=== PATIENT | male | born 1960 | race Hispanic/Latino ===

== ENCOUNTER 2016-08-03 09:36 | Emergency (ER) | payer OTHER ==
[2016-08-03] MEDS ORDERED: NORCO 7.5/325 PO ONE (10:36)
[2016-08-03] MEDS ORDERED: ZOFRAN ODT PO ONE (10:36)
[2016-08-03 10:37] LABS: Basophils % (Auto) 0.5 % (0.0-1.8); Eosinophils % (Auto) 1.6 % (0.0-4.3); Hematocrit 40.4 % (35.5-45.6); Hemoglobin 13.3 gm/dl (11.8-15.2); Mean Corpuscular HGB Conc 33 % (32-34); Mean Corpuscular Hemoglobin 31 pg (28-32); Mean Corpuscular Volume 93 fl (84-94); Platelet Count 201 K/mm3 (140-440); Red Blood Count 4.33 M/mm3 (3.65-5.03); Red Cell Distribution Width 13.3 % (13.2-15.2); White Blood Count 7.1 K/mm3 (4.5-11.0)
[2016-08-03] MEDS ORDERED: TESSALON PERLES PO ONE (10:37)
[2016-08-03 10:49] LABS: Creatine Kinase MB 2.9 ng/mL (0.0-4.0)
[2016-08-03 10:50] LABS: Anion Gap 18 mmol/L; BUN/Creatinine Ratio 21.42; Blood Urea Nitrogen 15 mg/dL (9-20); Calcium 8.9 mg/dL (8.4-10.2); Carbon Dioxide 21 mmol/L (22-30); Chloride 99.6 mmol/L (98-107); Creatine Kinase 91 units/L (55-170); Glucose 112 mg/dL (75-100); Sodium 135 mmol/L (137-145)
--- NOTE | 2016-08-03 11:11 | XRay Report ---
Single view chest: History: Chest pain. Findings: Borderline cardiomegaly. Trachea is midline. No consolidation, pneumothorax or pleural effusion. Impression: No definite acute cardiopulmonary findings.
--- NOTE | 2016-08-03 11:14 | Emergency Department Report ---
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 The patient reports chest pain since yesterday morning, 25 hours prior to my evaluation. He states that his chest pain has been constant since onset, right- sided in location, 8/10 in severity, stabbing in quality, and is exacerbated with coughing. He admits to experiencing a moderate to severe no productive cough also for the past one day. The patient denies fever, syncope, dyspnea, hemoptysis, forceful vomiting, unilateral leg swelling, recent immobilization, history of DVT or PE, hx cancer, cocaine use, amphetamine use, or other illicit stimulant drug use. ED Past Medical Hx - Past Medical History Previous Medical History?: No - Surgical History Past Surgical History?: No - Social History Smoking Status: Current Every Day Smoker Substance Use Type: None - Medications Home Medications: Home Medications Medication Instructions Recorded Confirmed Last Taken Type ALBUTEROL Inhaler [ProAir HFA 2 puff IH QID PRN #1 inhalation 08/03/16 Unknown Rx Inhaler] Benzonatate [Tessalon Perles] 100 mg PO Q8HR #14 capsule 08/03/16 Unknown Rx HYDROcodone/APAP 7.5-325 [[place] 1 each PO Q8HR PRN #10 tablet 08/03/16 Unknown Rx 7.5-325 mg TAB] Omeprazole Magnesium [PriLOSEC Otc] 20 mg PO QDAY #14 tablet. 08/03/16 Unknown Rx predniSONE [Deltasone] 20 mg PO QDAY #5 tab 08/03/16 Unknown Rx ED Review of Systems ROS: Stated complaint: RT CHEST PAIN Other details as noted in HPI Constitutional: denies: fever ENT: denies: throat or neck pain Respiratory: denies: cough, shortness of breath Cardiovascular: reports chest pain Endocrine: denies unexplained weight loss or gain Gastrointestinal: denies: abdominal pain, nausea Genitourinary: denies: dysuria Musculoskeletal: denies: leg swelling Skin: denies: rash Neurological: denies: headache Hematological/Lymphatic: denies: easy bleeding or easy bruising Psych: denies sadness or hopelessness Physical Exam - Physical Exam Vital Signs: Vital Signs 08/03/16 08/03/16 08/03/16 09:52 09:59 10:00 Temperature 98.3 F Pulse Rate 73 71 68 Respiratory 21 Rate Blood Pressure 127/83 146/85 O2 Sat by Pulse 99 Oximetry 08/03/16 08/03/16 08/03/16 10:08 10:15 10:49 Temperature Pulse Rate 66 Respiratory 21 14 14 Rate Blood Pressure 124/85 O2 Sat by Pulse 99 93 Oximetry Physical Exam: General: well-nourished, well-developed, no acute distress Head: Normocephalic, atraumatic Eyes: normal sclera ENT: Mucous membranes are pink and moist Neck: trachea midline, neck supple, No neck stiffness, no cervical adenopathy Respiratory: Breath sounds equal bilaterally, no wheezing, rales, or rhonchi Cardio: S1 and S2 present, no murmurs, rubs, gallops, capillary refill is brisk Abdomen: Normoactive bowel sounds, soft abdomen, no rigidity, no guarding or rebound tenderness Chest WALL/Back: No tenderness to palpation of the chest wall, no CVA tenderness with percussion Musc: No pitting edema Skin: No rash Neuro: no facial drooping, normal speech Psych: Normal affect ED Course Vital Signs 08/03/16 08/03/16 08/03/16 09:52 09:59 10:00 Temperature 98.3 F Pulse Rate 73 71 68 Respiratory 21 Rate Blood Pressure 127/83 146/85 O2 Sat by Pulse 99 Oximetry 08/03/16 08/03/16 08/03/16 10:08 10:15 10:49 Temperature Pulse Rate 66 Respiratory 21 14 14 Rate Blood Pressure 124/85 O2 Sat by Pulse 99 93 Oximetry ED Medical Decision Making - Lab Data Result diagrams: 08/03/16 10:15 08/03/16 10:15 - Medical Decision Making The patient was seen and examined by myself. The patient is placed on a pvc monitor and continuous pulse ox. On initial evaluation, the patient was found to be in no distress. EKG was negative for findings suggestive of acute cardiac infarct. Labs and imaging are obtained. The patient is given a tablet of [place] for his pain and Tessalon Perles for cough. Chest x-ray is negative for pneumothorax, focal consolidation, pulmonary vascular congestion, pleural effusion, or other obvious acute cardiopulmonary disease process. Lab results were non-concerning including levels of troponin, WBC, hemoglobin, hematocrit, electrolytes, renal function. The patient was reevaluated and reported that their symptoms were markedly improved. As the patient has a SHITAL risk score of 0, and a well's score less than 2, the patient is at low risk of ACS or pulmonary emboli etiology of their symptoms. The patient is stable for discharge with outpatient follow-up. The patient is given follow-up and return instructions. The patient expressed understanding and agreed with the plan. The patient is discharged in stable condition. Critical care attestation.: If time is entered above; I have spent that time in minutes in the direct care of this critically ill patient, excluding procedure time. ED Disposition Clinical Impression: Acute chest pain Disposition: DISCHARGED TO HOME OR SELFCARE Is pt being admited?: No Does the pt Need Aspirin: No Condition: Stable Instructions: Chest Pain (ED), Costochondritis (ED), Gastroesophageal Reflux Disease (ED) Prescriptions: ALBUTEROL Inhaler [ProAir HFA Inhaler] 2 puff IH QID PRN #1 inhalation PRN Reason: Shortness Of Breath Benzonatate [Tessalon Perles] 100 mg PO Q8HR #14 capsule HYDROcodone/APAP 7.5-325 [[place] 7.5-325 mg TAB] 1 each PO Q8HR PRN #10 tablet PRN Reason: Pain Omeprazole Magnesium [PriLOSEC Otc] 20 mg PO QDAY #14 tablet. predniSONE [Deltasone] 20 mg PO QDAY #5 tab Referrals: PRIMARY CARE, [Primary Care Provider] - 3-5 Days Time of Disposition: 11:09
[2016-08-03 12:18] VITALS: BP 131/82
== END 2016-08-03 12:14 | disposition home or self-care (01) ==
LOC: ED 09:36
DX: R07.89 Other chest pain (principal); F17.200 Nicotine dependence, unspecified, uncomplicated
CPT/HCPCS: 36415; 71010; 80048; 82550; 82553; 84484; 85025; 93005; 93010; Q0162

== ENCOUNTER 2020-09-13 10:10 | Emergency (ER) | payer SELFPAY ==
[2020-09-13 10:23] VITALS: BP 141/83
[2020-09-13] MEDS ORDERED: IBUPROFEN 800 MG TAB PO ONE (10:33)
--- NOTE | 2020-09-13 10:34 | Emergency Department Report ---
ED Lower Extremity HPI - General Chief Complaint: Extremity Injury, Lower Stated Complaint: LEFT ANKLE INJURY Time Seen by Provider: 09/13/20 10:20 Source: patient Mode of arrival: Ambulatory Limitations: No Limitations - History of Present Illness Initial Comments: 60-year-old male presents to the ER today with complaints of right ankle pain. Patient states that yesterday around 2 PM while walking down a hill at his home he slipped on some pine straw's and fell. Patient states that when he fell he twisted his right ankle and it ended up underneath him. Patient states that he felt a pop after falling. Patient reports pain mainly to the lateral aspect of his right ankle with associated swelling and bruising. He reports difficulty ambulating due to pain. He denies any prior injury to that ankle. He reports no other symptoms at this time. MD Complaint: ankle injury -: Sudden (yesterday around 2pm ) - Related Data Previous Rx's Medication Instructions Recorded Last Taken Type Albuterol Mdi (or & Nicu Only) 2 puff IH QID PRN #1 inhalation 08/03/16 Unknown Rx [ProAir HFA Inhaler] Benzonatate [Tessalon Perles] 100 mg PO Q8HR #14 capsule 08/03/16 Unknown Rx Omeprazole Magnesium [PriLOSEC Otc] 20 mg PO QDAY #14 tablet. 08/03/16 Unknown Rx predniSONE [Deltasone] 20 mg PO QDAY #5 tab 08/03/16 Unknown Rx HYDROcodone/APAP 7.5-325 [[place] 1 each PO Q8HR PRN #10 tablet 09/13/20 Unknown Rx 7.5-325 mg TAB] Ibuprofen [Motrin] 800 mg PO Q8HR PRN #30 tablet 09/13/20 Unknown Rx Allergies Allergy/AdvReac Type Severity Reaction Status Date / Time Penicillins Allergy Hives Verified 08/03/16 09:57 ED Review of Systems ROS: Stated complaint: LEFT ANKLE INJURY Other details as noted in HPI Comment: All other systems reviewed and negative Musculoskeletal: joint swelling, arthralgia Neurological: abnormal gait ED Past Medical Hx - Past Medical History Previous Medical History?: No - Surgical History Past Surgical History?: Yes Additional Surgical History: left wrist, left knee - Social History Smoking Status: Current Every Day Smoker Substance Use Type: None - Medications Home Medications: Home Medications Medication Instructions Recorded Confirmed Last Taken Type Albuterol Mdi (or & Nicu Only) 2 puff IH QID PRN #1 inhalation 08/03/16 Unknown Rx [ProAir HFA Inhaler] Benzonatate [Tessalon Perles] 100 mg PO Q8HR #14 capsule 08/03/16 Unknown Rx Omeprazole Magnesium [PriLOSEC Otc] 20 mg PO QDAY #14 tablet. 08/03/16 Unknown Rx predniSONE [Deltasone] 20 mg PO QDAY #5 tab 08/03/16 Unknown Rx HYDROcodone/APAP 7.5-325 [[place] 1 each PO Q8HR PRN #10 tablet 09/13/20 Unknown Rx 7.5-325 mg TAB] Ibuprofen [Motrin] 800 mg PO Q8HR PRN #30 tablet 09/13/20 Unknown Rx ED Physical Exam - General Limitations: No Limitations General appearance: alert, in no apparent distress - Respiratory Respiratory exam: Present: respiratory distress. Absent: normal lung sounds bilaterally - Cardiovascular Cardiovascular Exam: Present: regular rate, normal rhythm, normal heart sounds - Expanded Lower Extremity Exam Right Ankle exam: Present: tenderness (Severe tenderness to palpation to the lateral aspect of the right ankle), swelling (Mainly to the lateral aspect of the right ankle and mildly also to the lateral aspect of the foot), ecchymosis (Mild, mainly around the lateral aspect of the right foot.). Absent: full ROM (Range of motion of the ankle reduced due to pain), abrasion, crepidus, dislocation, erythema Neuro vascular tendon exam: Present: no vascular compromise - Neurological Exam Neurological exam: Present: alert, oriented X3, CN II-XII intact, abnormal gait (Limping gait secondary to pain to the right ankle), other (Dorsalis pedis pulse normal. Cap refill normal to the left foot. Sensation intact over the left foot and ankle.) - Psychiatric Psychiatric exam: Present: normal affect, normal mood - Skin Skin exam: Present: intact ED Course Vital Signs 09/13/20 09/13/20 10:23 11:16 Temperature 98.1 F Pulse Rate 74 Respiratory 20 20 Rate Blood Pressure 141/83 [Right] O2 Sat by Pulse 97 Oximetry ED Lower Extremity MDM - Radiology Data Radiology results: report reviewed Patient: MICHAEL VU MR#: [id number] : 1960 Acct:[id number] Age/Sex: 60 / M ADM Date: 09/13/20 Loc: ED Attending Dr: Ordering Physician: ANJEL ALFARO Date of Service: 09/13/20 Procedure(s): XR ankle 3+V LT Accession Number(s): [id number] cc: ANJEL ALFARO Fluoro Time In Minutes: XR foot 3+V LT, XR ankle 3+V LT INDICATION / CLINICAL INFORMATION: Slipped fell/twisted foot. COMPARISON: None available. FINDINGS: Left ankle: There is an acute minimally displaced oblique fracture involving the distal fibula at the syndesmosis. No additional acute fracture. Corticated densities at the distal tip of the medial malleolus are consistent with sequela of prior trauma. Ankle mortise is symmetric. Syndesmosis is intact. Soft tissue swelling is present. Left foot: No acute fracture or malalignment. Lisfranc interval is preserved. Scattered degenerative changes, greatest at the first MTP. No focal soft tissue abnormality. IMPRESSION: Acute distal left fibular fracture. Signer Name: Marly Ortiz MD Signed: 09/13/2020 11:07 AM Workstation Name: [email or web address] Transcribed By: JS Dictated By: MARLY ORTIZ MD Electronically Authenticated By: MARLY ORTIZ MD Signed Date/Time: 09/13/20 1107 DD/ 1105 TD/TT: - Medical Decision Making X-ray shows distal fibula fracture of the left ankle. No evidence of compartment syndrome. Patient placed in the short posterior OCL splint. Patient neurovascular intact post splint placement. Discussed x-ray results, splint care, and the need for follow-up with entry specialists with patient. Patient expressed understanding of instructions and agree with plan. Patient was stable at time of discharge. Critical care attestation.: If time is entered above; I have spent that time in minutes in the direct care of this critically ill patient, excluding procedure time. ED Disposition Clinical Impression: Fracture of distal fibula Disposition: - TO HOME OR SELFCARE Is pt being admited?: No Does the pt Need Aspirin: No Condition: Stable Instructions: Ankle Fracture Additional Instructions: Do not remove the splint or get it wet. Elevate your leg as often as possible. Use the crutches to help ambulate. Take the Motrin and the hydrocodone as prescribed. Follow-up with the entry specialists listed on your discharge instructions next week. Return to the ER if any symptoms changes or worsens in any way. Prescriptions: Ibuprofen [Motrin] 800 mg PO Q8HR PRN #30 tablet PRN Reason: PAIN HYDROcodone/APAP 7.5-325 [[place] 7.5-325 mg TAB] 1 each PO Q8HR PRN #10 tablet PRN Reason: Pain Referrals: KATIE MITCHELL MD [Staff Physician] - 3-5 Days Forms: Work/School Release Form(ED) Time of Disposition: 12:24
--- NOTE | 2020-09-13 11:12 | XRay Report ---
XR foot 3+V LT, XR ankle 3+V LT INDICATION / CLINICAL INFORMATION: Slipped fell/twisted foot. COMPARISON: None available. FINDINGS: Left ankle: There is an acute minimally displaced oblique fracture involving the distal fibula at the syndesmosis. No additional acute fracture. Corticated densities at the distal tip of the medial mall eolus are consistent with sequela of prior trauma. Ankle mortise is symmetric. Syndesmosis is intact. Soft tissue swelling is present. Left foot: No acute fracture or malalignment. Lisfranc interval is preserved. Scattered degenerative changes, greatest at the first MTP. No focal soft tissue abnormality. IMPRESSION: Acute distal left fibular fracture. Signer Name: Alban Ortiz MD Signed: 09/13/2020 11:07 AM Workstation Name: [id number]
== END 2020-09-13 12:50 | disposition home or self-care (01) ==
LOC: ED 10:10
DX: S82.492A Other fracture of shaft of left fibula, initial encounter for closed fracture (principal); F17.200 Nicotine dependence, unspecified, uncomplicated; Z79.899 Other long term (current) drug therapy; W17.89XA Other fall from one level to another, initial encounter; Y93.89 Activity, other specified; Y92.89 Other specified places as the place of occurrence of the external cause; Y99.8 Other external cause status
CPT/HCPCS: 99283

== ENCOUNTER 2021-07-28 11:11 | Emergency (ER) | payer SELFPAY ==
[2021-07-28 11:42] VITALS: BP 146/85
--- NOTE | 2021-07-28 11:55 | Emergency Department Report ---
ED ENT HPI - General Chief complaint: Earache Stated complaint: RGHT EAR PAIN Time Seen by Provider: 07/28/21 11:45 Source: patient Mode of arrival: Ambulatory Limitations: No Limitations - Related Data Previous Rx's Medication Instructions Recorded Last Taken Type Albuterol Mdi (or & Nicu Only) 2 puff IH QID PRN #1 inhalation 08/03/16 Unknown Rx [ProAir HFA Inhaler] Benzonatate [Tessalon Perles] 100 mg PO Q8HR #14 capsule 08/03/16 Unknown Rx Omeprazole Magnesium [PriLOSEC Otc] 20 mg PO QDAY #14 tablet. 08/03/16 Unknown Rx predniSONE [Deltasone] 20 mg PO QDAY #5 tab 08/03/16 Unknown Rx HYDROcodone/APAP 7.5-325 [[place] 1 each PO Q8HR PRN #10 tablet 09/13/20 Unknown Rx 7.5-325 mg TAB] Ibuprofen [Motrin] 800 mg PO Q8HR PRN #30 tablet 09/13/20 Unknown Rx Ketorolac [Toradol] 10 mg PO Q6H PRN #10 07/28/21 Unknown Rx Neomy/Polymyx B/Hc Otic Susp 4 drops OTIC TID #1 bottle 07/28/21 Unknown Rx [Cortisporin (Otic) Susp] cephALEXin [Keflex] 500 mg PO Q12HR #14 cap 07/28/21 Unknown Rx Allergies Allergy/AdvReac Type Severity Reaction Status Date / Time Penicillins Allergy Hives Verified 08/03/16 09:57 ED Dental HPI - General Chief complaint: Earache Stated complaint: RGHT EAR PAIN Time Seen by Provider: 07/28/21 11:45 Source: patient Mode of arrival: Ambulatory Limitations: No Limitations - History of Present Illness Initial comments: brooks earache and reports has been trying to use OTC ear wax still cleaner tube and hearing worsen MD complaint: ear pain -: days(s) Severity: moderate Quality: aching Consistency: constant Improves with: pressure Worsens with: none - Related Data Previous Rx's Medication Instructions Recorded Last Taken Type Albuterol Mdi (or & Nicu Only) 2 puff IH QID PRN #1 inhalation 08/03/16 Unknown Rx [ProAir HFA Inhaler] Benzonatate [Tessalon Perles] 100 mg PO Q8HR #14 capsule 08/03/16 Unknown Rx Omeprazole Magnesium [PriLOSEC Otc] 20 mg PO QDAY #14 tablet. 08/03/16 Unknown Rx predniSONE [Deltasone] 20 mg PO QDAY #5 tab 08/03/16 Unknown Rx HYDROcodone/APAP 7.5-325 [[place] 1 each PO Q8HR PRN #10 tablet 09/13/20 Unknown Rx 7.5-325 mg TAB] Ibuprofen [Motrin] 800 mg PO Q8HR PRN #30 tablet 09/13/20 Unknown Rx Ketorolac [Toradol] 10 mg PO Q6H PRN #10 07/28/21 Unknown Rx Neomy/Polymyx B/Hc Otic Susp 4 drops OTIC TID #1 bottle 07/28/21 Unknown Rx [Cortisporin (Otic) Susp] cephALEXin [Keflex] 500 mg PO Q12HR #14 cap 07/28/21 Unknown Rx Allergies Allergy/AdvReac Type Severity Reaction Status Date / Time Penicillins Allergy Hives Verified 08/03/16 09:57 ED Review of Systems ROS: Stated complaint: RGHT EAR PAIN Other details as noted in HPI Constitutional: denies: chills, fever Eyes: denies: eye pain, eye discharge, vision change ENT: denies: ear pain, throat pain Respiratory: denies: cough, shortness of breath, wheezing Cardiovascular: denies: chest pain, palpitations Endocrine: no symptoms reported Gastrointestinal: denies: abdominal pain, nausea, diarrhea Genitourinary: denies: urgency, dysuria Musculoskeletal: denies: back pain, joint swelling, arthralgia Skin: denies: rash, lesions Neurological: denies: headache, weakness, paresthesias Psychiatric: denies: anxiety, depression Hematological/Lymphatic: denies: easy bleeding, easy bruising ED Past Medical Hx - Past Medical History Previous Medical History?: Yes Additional medical history: left knee pain, left wrist pain - Surgical History Past Surgical History?: Yes Additional Surgical History: left wrist, left knee - Social History Smoking Status: Current Every Day Smoker Substance Use Type: None - Medications Home Medications: Home Medications Medication Instructions Recorded Confirmed Last Taken Type Albuterol Mdi (or & Nicu Only) 2 puff IH QID PRN #1 inhalation 08/03/16 Unknown Rx [ProAir HFA Inhaler] Benzonatate [Tessalon Perles] 100 mg PO Q8HR #14 capsule 08/03/16 Unknown Rx Omeprazole Magnesium [PriLOSEC Otc] 20 mg PO QDAY #14 tablet. 08/03/16 Unknown Rx predniSONE [Deltasone] 20 mg PO QDAY #5 tab 08/03/16 Unknown Rx HYDROcodone/APAP 7.5-325 [[place] 1 each PO Q8HR PRN #10 tablet 09/13/20 Unknown Rx 7.5-325 mg TAB] Ibuprofen [Motrin] 800 mg PO Q8HR PRN #30 tablet 09/13/20 Unknown Rx Ketorolac [Toradol] 10 mg PO Q6H PRN #10 07/28/21 Unknown Rx Neomy/Polymyx B/Hc Otic Susp 4 drops OTIC TID #1 bottle 07/28/21 Unknown Rx [Cortisporin (Otic) Susp] cephALEXin [Keflex] 500 mg PO Q12HR #14 cap 07/28/21 Unknown Rx ED Physical Exam - General Limitations: No Limitations General appearance: alert, in no apparent distress - Head Head exam: Present: atraumatic, normocephalic - Eye Eye exam: Present: normal appearance - ENT ENT exam: Present: mucous membranes moist - Expanded ENT Exam Expanded TM/Canal exam: Erythema: Right TM, Canal Discharge: Right TM, Canal Tenderness: Right TM - Neck Neck exam: Present: normal inspection - Respiratory Respiratory exam: Present: normal lung sounds bilaterally. Absent: respiratory distress - Cardiovascular Cardiovascular Exam: Present: regular rate, normal rhythm. Absent: systolic murmur, diastolic murmur, rubs, gallop - GI/Abdominal GI/Abdominal exam: Present: soft, normal bowel sounds - Rectal Rectal exam: Present: deferred - Extremities Exam Extremities exam: Present: normal inspection - Back Exam Back exam: Present: normal inspection - Neurological Exam Neurological exam: Present: alert, oriented X3 - Psychiatric Psychiatric exam: Present: normal affect, normal mood - Skin Skin exam: Present: warm, dry, intact, normal color. Absent: rash ED Course Vital Signs 07/28/21 11:41 Temperature 97.9 F Pulse Rate 78 Respiratory 18 Rate Blood Pressure 146/85 O2 Sat by Pulse 97 Oximetry Critical care attestation.: If time is entered above; I have spent that time in minutes in the direct care of this critically ill patient, excluding procedure time. ED Disposition Clinical Impression: Otitis externa Disposition: HOME / SELF CARE / HOMELESS Is pt being admited?: No Does the pt Need Aspirin: No Condition: Stable Instructions: Otitis Externa, Ear Drops, Adult, [id number] Prescriptions: Neomy/Polymyx B/Hc Otic Susp [Cortisporin (Otic) Susp] 4 drops OTIC TID #1 bottle cephALEXin [Keflex] 500 mg PO Q12HR #14 cap Ketorolac [Toradol] 10 mg PO Q6H PRN #10 PRN Reason: Pain
== END 2021-07-28 12:03 | disposition home or self-care (01) ==
LOC: ED 11:11
DX: H60.90 Unspecified otitis externa, unspecified ear (principal); Z88.0 Allergy status to penicillin; F17.200 Nicotine dependence, unspecified, uncomplicated
CPT/HCPCS: 99282

== ENCOUNTER 2021-09-06 16:32 | Emergency (ER) | payer SELFPAY ==
[2021-09-06 19:19] VITALS: BP 134/77
--- NOTE | 2021-09-07 00:58 | Emergency Department Report ---
ED General Adult HPI - General Chief complaint: Earache Stated complaint: PAIIN IN BOTH EARS Source: patient Mode of arrival: Ambulatory Limitations: No Limitations - History of Present Illness Initial comments: Patient is a 61-year-old male with no past medical history presented to the ED with complaint of acute onset persistent bilateral ear pain for the last 2 weeks. Patient stated that he was initially and previously treated for acute otitis media of right ear about a month and a half ago, was given a prescription for antibiotic eardrops and oral tablets which he took completely as instructed. Patient stated that these medications help control the infection but barely 2 weeks or so later he started experiencing similar symptoms, only that this time it is both ears. Patient denies head or neck injuries, dizziness, syncope, nausea and vomiting, chest pain or shortness of breath, nasal and sinus congestion, headache, hearing loss, neck pain, fever and chills or cough. MD Complaint: bilateral ear pain -: Sudden, week(s) (2) Location: face (bilateral ears) Radiation: non-radiation Severity scale (0 -10): 6 Quality: aching, sharp Consistency: constant Improves with: none Worsens with: none Associated Symptoms: denies other symptoms. denies: confusion, chest pain, cough, diaphoresis, fever/chills, headaches, loss of appetite, malaise, nausea/vomiting, rash, seizure, shortness of breath, syncope, weakness Treatments Prior to Arrival: none - Related Data Previous Rx's Medication Instructions Recorded Last Taken Type Albuterol Mdi (or & Nicu Only) 2 puff IH QID PRN #1 inhalation 08/03/16 Unknown Rx [ProAir HFA Inhaler] Benzonatate [Tessalon Perles] 100 mg PO Q8HR #14 capsule 08/03/16 Unknown Rx Omeprazole Magnesium [PriLOSEC Otc] 20 mg PO QDAY #14 tablet. 08/03/16 Unknown Rx HYDROcodone/APAP 7.5-325 [[place] 1 each PO Q8HR PRN #10 tablet 09/13/20 Unknown Rx 7.5-325 mg TAB] Ketorolac [Toradol] 10 mg PO Q6H PRN #10 07/28/21 Unknown Rx Neomy/Polymyx B/Hc Otic Susp 4 drops OTIC TID #1 bottle 07/28/21 Unknown Rx [Cortisporin (Otic) Susp] cephALEXin [Keflex] 500 mg PO Q12HR #14 cap 07/28/21 Unknown Rx Clindamycin [Clindamycin CAP] 300 mg PO Q6H #40 cap 09/07/21 Unknown Rx Ibuprofen [Motrin 800 MG tab] 800 mg PO Q8HR PRN #30 tablet 09/07/21 Unknown Rx Ofloxacin 0.3% [Floxin 0.3% Otic] 3 drops OT DAILY #10 ml 09/07/21 Unknown Rx predniSONE [Deltasone] 40 mg PO QDAY #10 tab 09/07/21 Unknown Rx Allergies Allergy/AdvReac Type Severity Reaction Status Date / Time Penicillins Allergy Hives Verified 08/03/16 09:57 ED Review of Systems ROS: Stated complaint: PAIIN IN BOTH EARS Other details as noted in HPI Constitutional: denies: chills, fever Eyes: denies: eye pain, eye discharge, vision change ENT: ear pain (Bilateral ear pain). denies: throat pain Respiratory: denies: cough, shortness of breath, wheezing Cardiovascular: denies: chest pain, palpitations Endocrine: no symptoms reported Gastrointestinal: denies: abdominal pain, nausea, vomiting, diarrhea Genitourinary: denies: urgency, dysuria Musculoskeletal: denies: back pain, joint swelling, arthralgia Skin: denies: rash, lesions Neurological: denies: headache, weakness, paresthesias Psychiatric: denies: anxiety, depression Hematological/Lymphatic: denies: easy bleeding, easy bruising ED Past Medical Hx - Past Medical History Additional medical history: left knee pain, left wrist pain - Surgical History Additional Surgical History: left wrist, left knee - Social History Smoking Status: Current Every Day Smoker Substance Use Type: None - Medications Home Medications: Home Medications Medication Instructions Recorded Confirmed Last Taken Type Albuterol Mdi (or & Nicu Only) 2 puff IH QID PRN #1 inhalation 08/03/16 Unknown Rx [ProAir HFA Inhaler] Benzonatate [Tessalon Perles] 100 mg PO Q8HR #14 capsule 08/03/16 Unknown Rx Omeprazole Magnesium [PriLOSEC Otc] 20 mg PO QDAY #14 tablet. 08/03/16 Unknown Rx HYDROcodone/APAP 7.5-325 [[place] 1 each PO Q8HR PRN #10 tablet 09/13/20 Unknown Rx 7.5-325 mg TAB] Ketorolac [Toradol] 10 mg PO Q6H PRN #10 07/28/21 Unknown Rx Neomy/Polymyx B/Hc Otic Susp 4 drops OTIC TID #1 bottle 07/28/21 Unknown Rx [Cortisporin (Otic) Susp] cephALEXin [Keflex] 500 mg PO Q12HR #14 cap 07/28/21 Unknown Rx Clindamycin [Clindamycin CAP] 300 mg PO Q6H #40 cap 09/07/21 Unknown Rx Ibuprofen [Motrin 800 MG tab] 800 mg PO Q8HR PRN #30 tablet 09/07/21 Unknown Rx Ofloxacin 0.3% [Floxin 0.3% Otic] 3 drops OT DAILY #10 ml 09/07/21 Unknown Rx predniSONE [Deltasone] 40 mg PO QDAY #10 tab 09/07/21 Unknown Rx ED Physical Exam - General Limitations: No Limitations General appearance: alert, in no apparent distress - Head Head exam: Present: atraumatic, normocephalic, normal inspection - Eye Eye exam: Present: normal appearance, PERRL, EOMI Pupils: Present: normal accommodation - ENT ENT exam: Present: normal exam, normal orophraynx, mucous membranes moist, other (Bilateral erythematous bulging tympanic membranes with tenderness) - Neck Neck exam: Present: normal inspection, full ROM. Absent: tenderness - Respiratory Respiratory exam: Present: normal lung sounds bilaterally. Absent: respiratory distress, wheezes, rales, chest wall tenderness, accessory muscle use, decreased breath sounds, prolonged expiratory, other - Cardiovascular Cardiovascular Exam: Present: regular rate, normal rhythm, normal heart sounds. Absent: systolic murmur, diastolic murmur, rubs, gallop - GI/Abdominal GI/Abdominal exam: Present: soft, normal bowel sounds. Absent: tenderness, guarding, rebound, rigid, hyperactive bowel sounds, hypoactive bowel sounds, organomegaly, mass - Extremities Exam Extremities exam: Present: normal inspection, full ROM, normal capillary refill - Back Exam Back exam: Present: normal inspection, full ROM. Absent: tenderness, CVA tenderness (R), CVA tenderness (L), muscle spasm, paraspinal tenderness, vertebral tenderness - Neurological Exam Neurological exam: Present: alert, oriented X3, CN II-XII intact, normal gait, reflexes normal - Psychiatric Psychiatric exam: Present: normal affect, normal mood - Skin Skin exam: Present: warm, dry, intact, normal color. Absent: rash ED Course Vital Signs 09/06/21 19:18 Temperature 97.7 F Pulse Rate 68 Respiratory 18 Rate Blood Pressure 134/77 O2 Sat by Pulse 98 Oximetry ED Medical Decision Making - Medical Decision Making This is a 61-year-old male with no past medical history presented to the ED with complaint of acute onset persistent bilateral ear pain for the last 2 weeks. Patient stated that he was initially and previously treated for acute otitis media of right ear about a month and a half ago, was given a prescription for antibiotic eardrops and oral tablets which he took completely as instructed. Patient stated that these medications help control the infection but barely 2 weeks or so later he started experiencing similar symptoms, only that this time it is both ears. In the ED, patient is alert and oriented x3 and is not in any distress. Patient was treated for pain in the ED. Patient was discharged home on pain medication and antibiotics and advised to follow-up with his primary care physician in 7 to 10 days for reevaluation. Patient was also given a referral to an ENT physician Dr. Smith for follow-up. Patient was advised to contact the ENT physician's office on Thursday, September 09, 2021 to schedule a follow-up appointment. Patient is advised return to the ED immediately if symptoms get worse. - Differential Diagnosis Bilateral otitis media; otitis externa; Critical care attestation.: If time is entered above; I have spent that time in minutes in the direct care of this critically ill patient, excluding procedure time. ED Disposition Clinical Impression: Acute otitis media with effusion of both ears Disposition: 01 HOME / SELF CARE / HOMELESS Is pt being admited?: No Does the pt Need Aspirin: No Condition: Stable Instructions: Otitis Media, Adult, [id number], Ear Drops, Adult, [id number] Additional Instructions: Take medication with food, drink plenty of fluids and follow-up with your primary care physician in 7 to 10 days for reevaluation. Return to the ED immediately if symptoms get worse. Prescriptions: Clindamycin [Clindamycin CAP] 300 mg PO Q6H #40 cap predniSONE [Deltasone] 40 mg PO QDAY #10 tab Ofloxacin 0.3% [Floxin 0.3% Otic] 3 drops OT DAILY #10 ml Ibuprofen [Motrin 800 MG tab] 800 mg PO Q8HR PRN #30 tablet PRN Reason: PAIN Referrals: MARLY SMITH MD [Staff Physician] - 3-5 Days [facility] [Provider Group] - 7-10 days Time of Disposition: 00:58 Print Language: VIETNAM[place]
[2021-09-07] MEDS ORDERED: CLINDAMYCIN 300 MG CAP PO ONE (01:00)
[2021-09-07] MEDS ORDERED: IBUPROFEN 600 MG TAB PO ONE (01:00)
== END 2021-09-07 01:15 | disposition home or self-care (01) ==
LOC: ED 16:32
DX: H65.193 Other acute nonsuppurative otitis media, bilateral (principal); F17.200 Nicotine dependence, unspecified, uncomplicated; Z98.890 Other specified postprocedural states; Z88.0 Allergy status to penicillin; Z79.899 Other long term (current) drug therapy
CPT/HCPCS: 99282